=== PATIENT | male | born 1970 | race American Indian/Alaskan Native ===

== ENCOUNTER 2016-09-18 12:08 | Emergency (ER) | payer OTHER ==
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
[2016-09-18 18:48] VITALS: BP 138/78
[2016-09-18] MEDS ORDERED: ROXICODONE PO ONE (18:52)
== END 2016-09-18 19:30 | disposition left against medical advice (07) ==
LOC: ED 12:08
DX: R07.89 Other chest pain (principal); R10.9 Unspecified abdominal pain; F17.200 Nicotine dependence, unspecified, uncomplicated; Z98.890 Other specified postprocedural states; V43.62XA Car passenger injured in collision with other type car in traffic accident, initial encounter; Y93.9 Activity, unspecified; Y99.9 Unspecified external cause status; Y92.410 Unspecified street and highway as the place of occurrence of the external cause
CPT/HCPCS: 71020; 93005; 93010